=== PATIENT | female | born 1990 | race African-American/Black ===

== ENCOUNTER 2021-01-03 03:39 | Inpatient (IN) | payer MEDICAID ==
[~2021-01-03] VITALS: Ht 162.6 cm; Wt 63.1 kg
[~2021-01-03 03:39] MED LIST: NEOM10SO7 OT
[2021-01-03] MEDS ORDERED: normal saline 1000ml 1,000 ML IV ONE (04:40)
[2021-01-03] MEDS ORDERED: ondansetron/PF 4mg/2ml inj IV ONE (04:40)
[2021-01-03] MEDS ORDERED: morphine 4 MG/ML inj SYRINge IV ONE (04:40)
[2021-01-03 05:01] LABS: BASOPHILS % (AUTO) 0.4 % (0-1); EOSINOPHILS # (AUTO) 0.1 X10'3 (0-0.9); EOSINOPHILS % (AUTO) 1.6 % (0-6); HEMOGLOBIN 12.3 g/dl (12.0-16.0); LYMPHOCYTES # (AUTO) 0.8 X10'3 (1.1-4.8); LYMPHOCYTES % (AUTO) 21.8 % (21-51); MEAN CORPUSCULAR HEMOGLOBIN 33.3 PG (27.0-31.0); MEAN CORPUSCULAR HGB CONC 33.3 g/dL (33.0-36.5); MEAN PLATELET VOLUME 8.3 FL (7.4-10.4); MONOCYTES # (AUTO) 0.3 X10'3 (0-0.9); MONOCYTES % (AUTO) 8.2 % (2-12); NEUTROPHILS # (AUTO) 2.6 X10'3 (1.8-7.7); PLATELET COUNT 195 X10'3 (140-440); RED CELL DISTRIBUTION WIDTH 12.9 % (11.5-14.5); WHITE BLOOD COUNT 3.8 X10'3 (4.5-11.0)
--- NOTE | 2021-01-03 05:08 | NUR ---
US IN WITH PT
--- NOTE | 2021-01-03 05:10 | NUR ---
PT STATES ABD PAIN 10/10 OVER ENTIRE ABDOMEN AND PT IS VOMITING
[2021-01-03 05:14] LABS: ALANINE AMINOTRANSFERASE 29 U/L (12-78); ALBUMIN 3.8 G/DL (3.4-5.0); ALBUMIN/GLOBULIN RATIO 1.1 (1.1-1.5); ALKALINE PHOSPHATASE 64 IU/L (46-116); ANION GAP 13 (8-16); ASPARTATE AMINO TRANSFERASE 16 U/L (10-37); BILIRUBIN,TOTAL 0.2 MG/DL (0.1-1.0); BLOOD UREA NITROGEN 13 MG/DL (7-18); BUN/CREATININE RATIO 12.4 (6.6-38.0); CALCIUM 8.9 MG/DL (8.5-10.1); CHLORIDE 104 MMOL/L (99-107); CREATININE 1.05 MG/DL (0.40-0.90); GLUCOSE 150 MG/DL (70-104); LIPASE 54 U/L (73-393); POTASSIUM 3.3 MMOL/L (3.5-5.1); SODIUM 141 MMOL/L (135-145); TOTAL PROTEIN 7.4 G/DL (6.4-8.2); eGFR 62 ML/MIN
[2021-01-03] MEDS ORDERED: metroNIDAZOLE-Flagyl 500mg/NS 100 ML IV STA (05:23)
[2021-01-03] MEDS ORDERED: CefTRIAXone/D5W-Rocephin 1gm 50 ML IV ONE (05:25)
[2021-01-03] MEDS ORDERED: acetaminophen 325mg tablet PO PRN ×2 (06:00)
[2021-01-03] MEDS ORDERED: potassium Cl 20 mEq SR tablet PO PRN ×2 (06:00)
[2021-01-03] MEDS ORDERED: HYDROcodone/acetaminophen 5mg/325mg tablet PO PRN (06:00)
[2021-01-03] MEDS ORDERED: potassium Cl 40MEQ/1/2NS 520ml 520 ML IV PRN ×2 (06:00)
[2021-01-03] MEDS ORDERED: morphine 2 MG/ML inj. syringe IV PRN (06:00)
[2021-01-03] MEDS ORDERED: magnesium 4gm in 100ml NS 100 ML IV PRN (06:00)
[2021-01-03] MEDS ORDERED: HYDROcodone/acetaminophen 10/325mg tab PO PRN (06:00)
[2021-01-03] MEDS ORDERED: mag hydrox/Alum hydrox/simeth 30ml oral suspension PO PRN (06:00)
[2021-01-03] MEDS ORDERED: magnesium Cl slow-release 64mg tablet PO PRN (06:00)
[2021-01-03] MEDS ORDERED: magnesium 2GM in 50ml NS 50 ML IV PRN (06:00)
[2021-01-03] MEDS ORDERED: ondansetron/PF 4mg/2ml inj IV PRN (06:00)
[2021-01-03] MEDS ORDERED: magnesium hydroxide 30ml (MOM) UD suspension PO PRN (06:00)
[2021-01-03] MEDS: morphine 2 MG/ML inj. syringe IV PRN ×2 (06:15→16:54)
[2021-01-03] MEDS ORDERED: pantoprazole 40 MG vial IV ONE (06:15)
[2021-01-03] MEDS: normal saline 1000ml 1,000 ML IV SCH ×2 (06:15→16:54)
[2021-01-03 06:39] LABS: CLARITY,URINE CLOUDY (Clear); COLOR,URINE STRAW (Yellow); GLUCOSE, URINE NEGATIVE (Neg); KETONES,URINE TRACE mg/dl (Neg); LEUKOCYTE ESTERASE ,URINE NEGATIVE (Neg); NITRITES, URINE NEGATIVE (Neg); OCCULT BLOOD,URINE NEGATIVE (Neg); PH,URINE 7.5 (4.8-8.0); PROTEIN,URINE NEGATIVE (Neg); UROBILINOGEN,URINE 0.2 E.U/dL (0.2-1.0)
[2021-01-03 06:44] LABS: URINE HCG NEGATIVE (NEG)
[2021-01-03 07:02] LABS: URINE AMPHETAMINE SCREEN NEGATIVE (Neg); URINE BARBITUATE SCREEN NEGATIVE (Neg); URINE BENZODIAZEPINES SCREEN NEGATIVE (Neg); URINE CANNABINOID SCREEN POSITIVE (Neg); URINE COCAINE SCREEN POSITIVE (Neg); URINE METHADONE SCREEN NEGATIVE (Neg); URINE OPIATE SCREEN POSITIVE (Neg); URINE PHENCYCLIDINE SCREEN NEGATIVE (Neg)
[2021-01-03 07:03] LABS: UA COLLECTION TYPE CLN CATCH MIDSTREAM
[2021-01-03 07:04] LABS: SQUAMOUS EPITHELIAL CELL,UR FEW /LPF (FEW)
[2021-01-03 07:05] LABS: RBC,URINE 0-2 /HPF (0-2); WBC,URINE 0-4 /HPF (0-4)
[2021-01-03 07:06] LABS: BACTERIA,URINE FEW /HPF (Neg)
[2021-01-03 08:00] VITALS: BP 147/104
[2021-01-03] MEDS: heparin, porcine 5000 units/ml vial SQ SCH ×2 (08:00→20:00)
[2021-01-03] MEDS: K and/or MAG REPLACEMENT MC SCH ×2 (08:03→20:00)
[2021-01-03] MEDS: piperacillin/tazo 3.375gm/50ml 50 ML IV SCH ×2 (08:23→16:27)
[2021-01-03 11:00] VITALS: BP 154/97
[2021-01-03] MEDS ORDERED: NO HOME MEDS (16:48)
--- NOTE | 2021-01-03 18:14 | NUR ---
Problems reprioritized. Patient report given, questions answered & plan of care reviewed with Tori BANSAL.
--- NOTE | 2021-01-03 18:28 | NUR ---
Patient in room [facility]. I have received report from ROLF Rae and had the opportunity to ask questions and assume patient care.
--- NOTE | 2021-01-03 18:32 | NUR ---
Patient in room [facility]. I have received report from ROLF Rae and had the opportunity to ask questions and assume patient care.
[2021-01-03 19:00] VITALS: BP 140/81
[2021-01-03] MEDS ORDERED: temazepam 15mg capsule PO PRN (21:00)
[2021-01-03 23:26] VITALS: BP 120/77
[2021-01-04] MEDS: piperacillin/tazo 3.375gm/50ml 50 ML IV SCH ×3 (00:11→16:19)
[2021-01-04] MEDS: normal saline 1000ml 1,000 ML IV SCH ×2 (02:35→12:05)
[2021-01-04 05:38] VITALS: BP 146/76
--- NOTE | 2021-01-04 06:02 | NUR ---
Problems reprioritized. Patient report given, questions answered & plan of care reviewed with ROLF Rae.
[2021-01-04 06:28] LABS: BASOPHILS % (AUTO) 0.3 % (0-1); EOSINOPHILS % (AUTO) 1.1 % (0-6); HEMATOCRIT 36.4 % (35.0-45.0); LYMPHOCYTES # (AUTO) 1.1 X10'3 (1.1-4.8); LYMPHOCYTES % (AUTO) 29.3 % (21-51); MEAN CORPUSCULAR HEMOGLOBIN 32.7 PG (27.0-31.0); MEAN CORPUSCULAR HGB CONC 32.9 g/dL (33.0-36.5); MEAN CORPUSCULAR VOLUME 99.6 FL (78-98); MEAN PLATELET VOLUME 8.7 FL (7.4-10.4); MONOCYTES # (AUTO) 0.3 X10'3 (0-0.9); MONOCYTES % (AUTO) 7.5 % (2-12); NEUTROPHILS # (AUTO) 2.3 X10'3 (1.8-7.7); NEUTROPHILS % (AUTO) 61.8 % (42-75); PLATELET COUNT 190 X10'3 (140-440); RED BLOOD COUNT 3.66 X10'6 (4.20-5.60); RED CELL DISTRIBUTION WIDTH 12.8 % (11.5-14.5); WHITE BLOOD COUNT 3.8 X10'3 (4.5-11.0)
--- NOTE | 2021-01-04 06:28 | NUR ---
Problems reprioritized. Patient report given, questions answered & plan of care reviewed with ROLF Rae.
[2021-01-04 06:31] LABS: PARTIAL THROMBOPLASTIN TIME 27 SECONDS (22-32)
[2021-01-04 06:41] LABS: ALANINE AMINOTRANSFERASE 27 U/L (12-78); ALBUMIN 3.2 G/DL (3.4-5.0); ALBUMIN/GLOBULIN RATIO 0.9 (1.1-1.5); ALKALINE PHOSPHATASE 55 IU/L (46-116); ANION GAP 11 (8-16); ASPARTATE AMINO TRANSFERASE 16 U/L (10-37); BILIRUBIN,TOTAL 0.5 MG/DL (0.1-1.0); BLOOD UREA NITROGEN 4 MG/DL (7-18); CALCIUM 8.2 MG/DL (8.5-10.1); CHLORIDE 105 MMOL/L (99-107); GLUCOSE 94 MG/DL (70-104); MAGNESIUM 2.1 MG/DL (1.5-2.4); POTASSIUM 3.5 MMOL/L (3.5-5.1); SODIUM 139 MMOL/L (135-145); TOTAL CARBON DIOXIDE 23.2 MMOL/L (24-32); TOTAL PROTEIN 6.9 G/DL (6.4-8.2); eGFR > 90 ML/MIN
[2021-01-04 08:00] VITALS: BP 124/69
[2021-01-04] MEDS: heparin, porcine 5000 units/ml vial SQ SCH (08:00)
[2021-01-04] MEDS: K and/or MAG REPLACEMENT MC SCH (08:00)
--- NOTE | 2021-01-04 09:52 | NUR ---
Malnutrition consult: Pt reports 2-13 lb wt loss with decreased appetite per malnutrition risk screen with RN. Patient's current documented wt is stable with documented wt hx from 2017 in EMR. Pt currently NPO, pending surgical intervention for acute cholecystitis with cholelithiasis. Pt with no documented decrease in muscle strength or edema. Pt appears well developed well nourished per ED report. Pt likely with some changes in appetite and PO intake secondary to admitting dx however currently lacks a minimum of two criteria for malnutrition. Will continue to follow. Addendum: 01/04/21 at [address] Amended: Links added.
[2021-01-04] MEDS ORDERED: ceFOXitin 2GM-NS 100mL ADDvant 100 ML IV ONE (11:30)
[2021-01-04 12:00] VITALS: BP 144/75
--- NOTE | 2021-01-04 17:54 | NUR ---
Patient left AMA. She was upset because her surgery time did not happen in a time frame that she was happy with. Patient was originally scheduled for surgery tomorrow 01/05/[address] Patricia. Patient states she will return tomorrow for her surgery. I did explain to her that just because she is schedule for surgery that it does not mean that it will occur at that exact minute. She was angry and left. IV was removed and canula was intact.
== END 2021-01-04 17:51 | disposition left against medical advice (07) ==
LOC: ER 03:39 → UNDOADMIN 05:57 → ED HOLD 05:57 → SUR 3N 07:15 → ED HOLD 07:15
PROVIDERS: ADMIT Internal Medicine; ATTEND Internal Medicine
DX: K80.00 Calculus of gallbladder with acute cholecystitis without obstruction (principal); F12.90 Cannabis use, unspecified, uncomplicated; Z20.822 Contact with and (suspected) exposure to COVID-19; F17.210 Nicotine dependence, cigarettes, uncomplicated; Z53.29 Procedure and treatment not carried out because of patient's decision for other reasons; Z88.6 Allergy status to analgesic agent
CPT/HCPCS: 36415; 76700; 80053; 80305; 81001; 81025; 82948; 83605; 83690; 83735; 85025; 85610; 85730; 87040; 87081; 87426; 96361; 96374; 96375; 99281; 99285; C9113; G0378; J0696; J2270; J2405; J2543; J3480; J3490; J7030

== ENCOUNTER → 2021-01-05 | Day surgery (SDC) | payer MEDICAID ==
[~2021-01-05] VITALS: Ht 162.6 cm; Wt 63.0 kg
[2021-01-05] VITALS (10 sets, daily range): BP systolic 122–165; BP diastolic 65–103
[~2021-01-05] MED LIST changes: +BUPIVAcaine/PF 2.5 mg/ml (0.25%) 30ml vial ONE; +CEFOXITIN 2 GM IV ONE; +INDOCYANINE GREEN 25 MG/10 ML VIAL IV ONE; -NEOM10SO7 OT; +NO HOME MEDS; +[UNRECOGNIZED DRUG - OTHER] IV ONE; +ceFOXitin 2GM-NS 100mL ADDvant 100 ML IV ONE; +ceFOXitin 2GM-NS 50mL ADDVANT. 50 ML IV ONE; +dexamethasone sod phosphate 4mg/ml inj. ONE; +famotidine 20mg tablet PO ONE; +fentaNYL /PF 50mcg/ml 5ml ampule ONE; +fentaNYL/PF 50MCG/1 ML 2ML syringe ONE; +glycopyrrolate 0.2mg/ml inj ONE; +meperidine/PF 25mg/ml syringe IV PRN; +midazolam 1 mg/ML 2ml injection ONE; +morphine 2 MG/ML inj. syringe IV PRN; +morphine 4 MG/ML inj SYRINge IV PRN; +neostigmine methylsulfate 1 MG/ML 10ml vial ONE; +ondansetron/PF 4mg/2ml inj IV PRN; +ondansetron/PF 4mg/2ml inj ONE; +proCHLORperazine 10 MG/2 ml inj IV PRN; +propofol inj 20 ML IV ONE; +ringers solution, lacted 1,000 ML IV SCH; +rocuronium 10mg/ml inj IV ONE; +sevoflurane 250ml liquid IH ONE
--- NOTE | 2021-01-05 16:28 | NUR ---
Received from OR via , accompanied by Anesthesiologist DR RUSHING and report given by Anesthesiolgist. PT PRESENT WITH IV RIGHT WRIST. VSS. DRESSING DRY AND INTACT. Addendum: 01/05/21 at 1639 by Corrie Chino RN, RN Amended: Links added.
[2021-01-05] MEDS: meperidine/PF 25mg/ml syringe IV PRN ×2 (16:34→16:48)
== END | disposition home or self-care (01) ==
LOC: PRE-OP 10:01
PROVIDERS: ATTEND Surgery
DX: K80.20 Calculus of gallbladder without cholecystitis without obstruction (principal); F12.90 Cannabis use, unspecified, uncomplicated; Z79.899 Other long term (current) drug therapy
CPT/HCPCS: 47562; 82948; J0694; J1100; J2175; J2250; J2405; J2704; J2710; J3010; J3490; J7120; A4215; A4618; A7000

== ENCOUNTER 2021-01-13 16:35 | Inpatient (IN) | payer MEDICAID ==
[~2021-01-13] VITALS: Ht 163.8 cm; Wt 59.0 kg
[~2021-01-13 16:35] MED LIST changes: -BUPIVAcaine/PF 2.5 mg/ml (0.25%) 30ml vial ONE; -CEFOXITIN 2 GM IV ONE; -INDOCYANINE GREEN 25 MG/10 ML VIAL IV ONE; -[UNRECOGNIZED DRUG - OTHER] IV ONE; -ceFOXitin 2GM-NS 100mL ADDvant 100 ML IV ONE; -ceFOXitin 2GM-NS 50mL ADDVANT. 50 ML IV ONE; -dexamethasone sod phosphate 4mg/ml inj. ONE; -famotidine 20mg tablet PO ONE; -fentaNYL /PF 50mcg/ml 5ml ampule ONE; -fentaNYL/PF 50MCG/1 ML 2ML syringe ONE; -glycopyrrolate 0.2mg/ml inj ONE; -meperidine/PF 25mg/ml syringe IV PRN; -midazolam 1 mg/ML 2ml injection ONE; -morphine 2 MG/ML inj. syringe IV PRN; -morphine 4 MG/ML inj SYRINge IV PRN; -neostigmine methylsulfate 1 MG/ML 10ml vial ONE; -ondansetron/PF 4mg/2ml inj IV PRN; -ondansetron/PF 4mg/2ml inj ONE; -proCHLORperazine 10 MG/2 ml inj IV PRN; -propofol inj 20 ML IV ONE; -ringers solution, lacted 1,000 ML IV SCH; -rocuronium 10mg/ml inj IV ONE; -sevoflurane 250ml liquid IH ONE
[2021-01-13] MEDS ORDERED: normal saline 1000ML IV soln IVB ONE (17:15)
[2021-01-13] MEDS ORDERED: ondansetron/PF 4mg/2ml inj IV ONE (17:15)
[2021-01-13] MEDS ORDERED: morphine 4 MG/ML inj SYRINge IV PRN (17:15)
[2021-01-13 17:30] LABS: BASOPHILS % (AUTO) 0.5 % (0-1); EOSINOPHILS # (AUTO) 0.1 X10'3 (0-0.9); EOSINOPHILS % (AUTO) 1.8 % (0-6); HEMOGLOBIN 14.2 g/dl (12.0-16.0); LYMPHOCYTES # (AUTO) 1.1 X10'3 (1.1-4.8); LYMPHOCYTES % (AUTO) 22.3 % (21-51); MEAN CORPUSCULAR HEMOGLOBIN 32.8 PG (27.0-31.0); MEAN CORPUSCULAR HGB CONC 32.9 g/dL (33.0-36.5); MEAN CORPUSCULAR VOLUME 99.7 FL (78-98); MEAN PLATELET VOLUME 8.2 FL (7.4-10.4); MONOCYTES # (AUTO) 0.3 X10'3 (0-0.9); MONOCYTES % (AUTO) 5.9 % (2-12); NEUTROPHILS # (AUTO) 3.4 X10'3 (1.8-7.7); NEUTROPHILS % (AUTO) 69.5 % (42-75); PLATELET COUNT 240 X10'3 (140-440); RED BLOOD COUNT 4.32 X10'6 (4.20-5.60); RED CELL DISTRIBUTION WIDTH 12.6 % (11.5-14.5); WHITE BLOOD COUNT 4.9 X10'3 (4.5-11.0)
[2021-01-13 17:47] LABS: ALKALINE PHOSPHATASE 299 IU/L (46-116); LIPASE 64 U/L (73-393)
[2021-01-13 17:48] LABS: ANION GAP 13 (8-16); ASPARTATE AMINO TRANSFERASE 989 U/L (10-37); BILIRUBIN,TOTAL 6.3 MG/DL (0.1-1.0); BLOOD UREA NITROGEN 12 MG/DL (7-18); BUN/CREATININE RATIO 11.8 (6.6-38.0); CALCIUM 9.9 MG/DL (8.5-10.1); CHLORIDE 100 MMOL/L (99-107); CREATININE 1.02 MG/DL (0.40-0.90); GLUCOSE 104 MG/DL (70-104); SODIUM 136 MMOL/L (135-145); TOTAL CARBON DIOXIDE 22.7 MMOL/L (24-32); eGFR 77 ML/MIN
[2021-01-13 17:51] LABS: ALANINE AMINOTRANSFERASE 2115 U/L (12-78); POTASSIUM 3.3 MMOL/L (3.5-5.1)
[2021-01-13] MEDS ORDERED: iohexol 300mg/ml 100ml inj. ONE (17:55)
[2021-01-13 18:04] LABS: ALBUMIN/GLOBULIN RATIO 0.9 (1.1-1.5); TOTAL PROTEIN 8.6 G/DL (6.4-8.2)
[2021-01-13 19:54] LABS: CLARITY,URINE CLEAR (Clear); GLUCOSE, URINE NEGATIVE (Neg); KETONES,URINE 15 mg/dl (Neg); LEUKOCYTE ESTERASE ,URINE NEGATIVE (Neg); NITRITES, URINE NEGATIVE (Neg); OCCULT BLOOD,URINE NEGATIVE (Neg); PH,URINE 7.5 (4.8-8.0); PROTEIN,URINE NEGATIVE (Neg); URINE HCG NEGATIVE (NEG)
--- NOTE | 2021-01-13 20:03 | NUR ---
pt to be admitted, dr. woodard at bedside now. Pt updated that we still need a urine on her.
[2021-01-13 20:06] LABS: UA COLLECTION TYPE CLN CATCH MIDSTREAM
[2021-01-13 20:07] LABS: COLOR,URINE DARK YELLOW (Yellow)
[2021-01-13] MEDS ORDERED: piperacillin/tazo 3.375gm/50ml 50 ML IV ONE (20:15)
--- NOTE | 2021-01-13 21:27 | NUR ---
GI ROLF HERMAN, CALLING TO UPDATE ME THAT PT IS PLANNED TO GO TO GI LAB AT [address] MCKINNEY FOR ERCP. PT UPDATED.
[2021-01-13] MEDS ORDERED: HYDR-3973 PO (21:34)
[2021-01-13] MEDS ORDERED: magnesium hydroxide 30ml (MOM) UD suspension PO PRN (21:55)
[2021-01-13] MEDS ORDERED: diphenhydrAMINE 25mg capsule PO PRN (21:55)
[2021-01-13] MEDS ORDERED: mag hydrox/Alum hydrox/simeth 30ml oral suspension PO PRN (21:55)
[2021-01-13] MEDS ORDERED: HYDROmorphone inj. 0.5 MG/0.5 ML DISP.SYRIN IV PRN (21:55)
[2021-01-13] MEDS ORDERED: ondansetron 4mg rapidly disintigrating tab PO PRN (21:55)
[2021-01-13] MEDS ORDERED: diphenhydrAMINE 50 mg/ml inj IV PRN (21:55)
[2021-01-13] MEDS ORDERED: bisacodyl 10mg suppository rectal RC PRN (21:55)
[2021-01-13] MEDS ORDERED: ondansetron/PF 4mg/2ml inj IV PRN (21:55)
[2021-01-13] MEDS ORDERED: acetaminophen 325mg tablet PO PRN ×2 (21:55)
[2021-01-13] MEDS ORDERED: HYDROcodone/acetaminophen 5mg/325mg tablet PO PRN (21:55)
[2021-01-13] MEDS ORDERED: morphine 2 MG/ML inj. syringe IV PRN (21:55)
[2021-01-13] MEDS ORDERED: acetaminophen 650mg rectal suppository RC PRN (21:55)
--- NOTE | 2021-01-13 21:57 | NUR ---
pt moved from bed 3 to hallway bed 7
--- NOTE | 2021-01-13 22:39 | NUR ---
Patient in room ED [id number]. I have received report from JOSE BANSAL and had the opportunity to ask questions and will assume patient care.
[2021-01-13] MEDS ORDERED: potassium Cl 20 mEq SR tablet PO PRN ×2 (22:45)
[2021-01-13] MEDS ORDERED: magnesium Cl slow-release 64mg tablet PO PRN (22:45)
[2021-01-13] MEDS ORDERED: potassium Cl 40MEQ/1/2NS 520ml 520 ML IV PRN (22:45)
[2021-01-13] MEDS ORDERED: magnesium 4gm in 100ml NS 100 ML IV PRN (22:45)
[2021-01-13] MEDS: dextrose 5%-1/2 normal saline 1,000 ML IV SCH (22:49)
[2021-01-13 22:53] LABS: PARTIAL THROMBOPLASTIN TIME 26 SECONDS (22-32)
[2021-01-13 22:57] LABS: MAGNESIUM 2.1 MG/DL (1.5-2.4)
[2021-01-13 22:58] LABS: PHOSPHORUS 3.2 MG/DL (2.3-4.5)
[2021-01-13 23:43] VITALS: BP 129/79
[2021-01-14] VITALS (11 sets, daily range): BP systolic 120–150; BP diastolic 51–98
[2021-01-14] MEDS: temazepam 15mg capsule PO PRN ×2 (00:30→20:58)
[2021-01-14] MEDS: piperacillin/tazo 3.375gm/50ml 50 ML IV SCH ×3 (04:30→20:57)
--- NOTE | 2021-01-14 06:20 | NUR ---
Patient in room [facility]. I have received report from ROLF Adkins and had the opportunity to ask questions and assume patient care.
--- NOTE | 2021-01-14 06:25 | NUR ---
Problems reprioritized. Patient report given, questions answered & plan of care reviewed with DICK RN.
[2021-01-14] MEDS ORDERED: fentaNYL/PF 50MCG/1 ML 2ML syringe ONE (07:11)
[2021-01-14] MEDS ORDERED: diphenhydrAMINE 50 mg/ml inj ONE (07:11)
[2021-01-14] MEDS ORDERED: glucagon, human recombinant 1mg kit ONE (07:11)
[2021-01-14] MEDS ORDERED: LIDOcaine Viscous 15ml cup ONE (07:11)
[2021-01-14] MEDS ORDERED: iohexol 300 MG/1 ML 50ml polymer ONE (07:11)
[2021-01-14] MEDS ORDERED: MIDAZolam 1 MG/ML 5ML VIAL ONE (07:11)
[2021-01-14 07:27] LABS: BASOPHILS % (AUTO) 0.8 % (0-1); EOSINOPHILS # (AUTO) 0.1 X10'3 (0-0.9); EOSINOPHILS % (AUTO) 3.7 % (0-6); HEMOGLOBIN 12.1 g/dl (12.0-16.0); LYMPHOCYTES # (AUTO) 1.4 X10'3 (1.1-4.8); MEAN CORPUSCULAR HEMOGLOBIN 33.3 PG (27.0-31.0); MEAN CORPUSCULAR HGB CONC 33.6 g/dL (33.0-36.5); MEAN PLATELET VOLUME 8.1 FL (7.4-10.4); MONOCYTES # (AUTO) 0.3 X10'3 (0-0.9); MONOCYTES % (AUTO) 8.3 % (2-12); NEUTROPHILS # (AUTO) 1.9 X10'3 (1.8-7.7); NEUTROPHILS % (AUTO) 50.2 % (42-75); PLATELET COUNT 200 X10'3 (140-440); RED BLOOD COUNT 3.63 X10'6 (4.20-5.60); RED CELL DISTRIBUTION WIDTH 12.6 % (11.5-14.5); WHITE BLOOD COUNT 3.8 X10'3 (4.5-11.0)
[2021-01-14 07:49] LABS: ALKALINE PHOSPHATASE 244 IU/L (46-116); ANION GAP 8 (8-16); ASPARTATE AMINO TRANSFERASE 594 U/L (10-37); BILIRUBIN,TOTAL 5.3 MG/DL (0.1-1.0); BLOOD UREA NITROGEN 7 MG/DL (7-18); BUN/CREATININE RATIO 7.8 (6.6-38.0); CALCIUM 8.4 MG/DL (8.5-10.1); CHLORIDE 103 MMOL/L (99-107); GLUCOSE 98 MG/DL (70-104); POTASSIUM 3.6 MMOL/L (3.5-5.1); SODIUM 135 MMOL/L (135-145); TOTAL CARBON DIOXIDE 24.1 MMOL/L (24-32); eGFR 89 ML/MIN
[2021-01-14 07:53] LABS: ALANINE AMINOTRANSFERASE 1528 U/L (12-78); ALBUMIN/GLOBULIN RATIO 0.8 (1.1-1.5); TOTAL PROTEIN 6.8 G/DL (6.4-8.2)
[2021-01-14] MEDS: dextrose 5%-1/2 normal saline 1,000 ML IV SCH ×2 (07:55→16:22)
[2021-01-14] MEDS: K and/or MAG REPLACEMENT MC SCH ×2 (08:00→20:00)
[2021-01-14] MEDS: docusate sod 100mg capsule PO SCH ×2 (10:22→20:58)
[2021-01-14] MEDS: pantoprazole 40 MG vial IV SCH (10:22)
--- NOTE | 2021-01-14 18:20 | NUR ---
Problems reprioritized. Patient report given, questions answered & plan of care reviewed with ROLF Fontana.
--- NOTE | 2021-01-14 19:33 | NUR ---
Patient in room [facility]. I have received report from Isabel BANSAL and had the opportunity to ask questions and assume patient care.
[2021-01-14] MEDS: morphine 2 MG/ML inj. syringe IV PRN (21:26)
[2021-01-15] MEDS: dextrose 5%-1/2 normal saline 1,000 ML IV SCH (03:43)
[2021-01-15] MEDS: piperacillin/tazo 3.375gm/50ml 50 ML IV SCH (03:44)
[2021-01-15] MEDS: morphine 2 MG/ML inj. syringe IV PRN (04:00)
--- NOTE | 2021-01-15 06:21 | NUR ---
Problems reprioritized. Patient report given, questions answered & plan of care reviewed with Marshal BANSAL.
[2021-01-15 06:26] LABS: BASOPHILS % (AUTO) 0.6 % (0-1); EOSINOPHILS # (AUTO) 0.1 X10'3 (0-0.9); EOSINOPHILS % (AUTO) 2.7 % (0-6); HEMATOCRIT 35.4 % (35.0-45.0); HEMOGLOBIN 11.8 g/dl (12.0-16.0); LYMPHOCYTES # (AUTO) 1.7 X10'3 (1.1-4.8); MEAN CORPUSCULAR HGB CONC 33.3 g/dL (33.0-36.5); MEAN CORPUSCULAR VOLUME 99.2 FL (78-98); MEAN PLATELET VOLUME 8.4 FL (7.4-10.4); MONOCYTES # (AUTO) 0.3 X10'3 (0-0.9); MONOCYTES % (AUTO) 8.1 % (2-12); NEUTROPHILS # (AUTO) 1.9 X10'3 (1.8-7.7); NEUTROPHILS % (AUTO) 46.6 % (42-75); PLATELET COUNT 204 X10'3 (140-440); RED BLOOD COUNT 3.57 X10'6 (4.20-5.60); RED CELL DISTRIBUTION WIDTH 12.6 % (11.5-14.5)
[2021-01-15 06:48] LABS: ALBUMIN 2.9 G/DL (3.4-5.0); ALBUMIN/GLOBULIN RATIO 0.8 (1.1-1.5); ALKALINE PHOSPHATASE 207 IU/L (46-116); ANION GAP 5 (8-16); ASPARTATE AMINO TRANSFERASE 207 U/L (10-37); BILIRUBIN,TOTAL 1.3 MG/DL (0.1-1.0); BLOOD UREA NITROGEN 5 MG/DL (7-18); BUN/CREATININE RATIO 5.7 (6.6-38.0); CALCIUM 8.3 MG/DL (8.5-10.1); CHLORIDE 106 MMOL/L (99-107); CREATININE 0.88 MG/DL (0.40-0.90); GLUCOSE 112 MG/DL (70-104); LIPASE 85 U/L (73-393); POTASSIUM 3.7 MMOL/L (3.5-5.1); SODIUM 138 MMOL/L (135-145); TOTAL CARBON DIOXIDE 27.1 MMOL/L (24-32); TOTAL PROTEIN 6.5 G/DL (6.4-8.2); eGFR > 90 ML/MIN
[2021-01-15 06:49] LABS: ALANINE AMINOTRANSFERASE 1037 U/L (12-78)
[2021-01-15 07:22] VITALS: BP 116/71
[2021-01-15] MEDS: docusate sod 100mg capsule PO SCH (07:58)
[2021-01-15] MEDS: K and/or MAG REPLACEMENT MC SCH (08:00)
[2021-01-15] MEDS: pantoprazole 40 MG vial IV SCH (08:02)
--- NOTE | 2021-01-15 08:56 | NUR ---
Dr Harshad leo MD stated pt may be discharged by the hospitalist. Pt verbalized understanding and denied questions.
== END 2021-01-15 10:55 | disposition home or self-care (01) ==
LOC: ER 16:36 → ED HOLD 21:51 → SUR 3N 23:00
PROVIDERS: ADMIT Family Medicine; ATTEND Family Medicine
PROC: BW211ZZ Computerized Tomography (CT Scan) of Abdomen and Pelvis using Low Osmolar Contrast (ICD-10-PCS; 2021-01-13)
PROC: 0FC98ZZ Extirpation of Matter from Common Bile Duct, Via Natural or Artificial Opening Endoscopic (ICD-10-PCS; principal; 2021-01-14)
DX: K80.30 Calculus of bile duct with cholangitis, unspecified, without obstruction (principal); K56.7 Ileus, unspecified; K76.0 Fatty (change of) liver, not elsewhere classified; E86.0 Dehydration; E87.6 Hypokalemia; F12.90 Cannabis use, unspecified, uncomplicated; I10 Essential (primary) hypertension; Z90.49 Acquired absence of other specified parts of digestive tract; Z88.8 Allergy status to other drugs, medicaments and biological substances; Z79.899 Other long term (current) drug therapy
CPT/HCPCS: 36415; 43262; 43264; 74177; 80053; 81003; 81025; 83690; 83735; 84100; 85025; 85610; 85730; 87081; 96361; 96365; 96375; 99152; 99153; 99285; A4620; C1769; C9113; G0378; J1200; J1610; J2250; J2270; J2405; J2543; J3010; J3480; J7030; J7040; Q9967

== ENCOUNTER 2021-02-07 08:40 | Emergency (ER) | payer MEDICAID ==
[~2021-02-07] VITALS: Ht 162.6 cm; Wt 63.0 kg
[~2021-02-07 08:40] MED LIST changes: +HYDR-3973 PO; -NO HOME MEDS
[2021-02-07 09:29] VITALS: BP 120/77
[2021-02-07] MEDS ORDERED: iohexol 300mg/ml 100ml inj. ONE (11:56)
[2021-02-07 12:28] LABS: URINE HCG NEGATIVE (NEG)
[2021-02-07 12:29] LABS: BASOPHILS % (AUTO) 0.4 % (0-1); EOSINOPHILS # (AUTO) 0.1 X10'3 (0-0.9); HEMATOCRIT 36.9 % (35.0-45.0); HEMOGLOBIN 12.1 g/dl (12.0-16.0); LYMPHOCYTES % (AUTO) 40.2 % (21-51); MEAN CORPUSCULAR HEMOGLOBIN 33.1 PG (27.0-31.0); MEAN CORPUSCULAR HGB CONC 32.8 g/dL (33.0-36.5); MEAN PLATELET VOLUME 8.6 FL (7.4-10.4); MONOCYTES # (AUTO) 0.3 X10'3 (0-0.9); MONOCYTES % (AUTO) 7.1 % (2-12); NEUTROPHILS # (AUTO) 2.4 X10'3 (1.8-7.7); NEUTROPHILS % (AUTO) 49.3 % (42-75); PLATELET COUNT 212 X10'3 (140-440); RED BLOOD COUNT 3.66 X10'6 (4.20-5.60); RED CELL DISTRIBUTION WIDTH 13.3 % (11.5-14.5); WHITE BLOOD COUNT 4.9 X10'3 (4.5-11.0)
[2021-02-07 12:38] LABS: ALANINE AMINOTRANSFERASE 34 U/L (12-78); ALBUMIN 3.7 G/DL (3.4-5.0); ALBUMIN/GLOBULIN RATIO 0.9 (1.1-1.5); ALKALINE PHOSPHATASE 77 IU/L (46-116); ANION GAP 7 (8-16); ASPARTATE AMINO TRANSFERASE 13 U/L (10-37); BILIRUBIN,TOTAL 0.4 MG/DL (0.1-1.0); BLOOD UREA NITROGEN 12 MG/DL (7-18); CALCIUM 8.7 MG/DL (8.5-10.1); CHLORIDE 108 MMOL/L (99-107); CREATININE 0.86 MG/DL (0.40-0.90); GLUCOSE 82 MG/DL (70-104); SODIUM 143 MMOL/L (135-145); TOTAL CARBON DIOXIDE 28.4 MMOL/L (24-32); TOTAL PROTEIN 7.6 G/DL (6.4-8.2); eGFR > 90 ML/MIN
[2021-02-07 12:54] LABS: CLARITY,URINE SLIGHTLY CLOUDY (Clear); COLOR,URINE YELLOW (Yellow); GLUCOSE, URINE NEGATIVE (Neg); KETONES,URINE NEGATIVE (Neg); LEUKOCYTE ESTERASE ,URINE NEGATIVE (Neg); NITRITES, URINE NEGATIVE (Neg); OCCULT BLOOD,URINE TRACE-INTACT (Neg); PH,URINE 6.5 (4.8-8.0); PROTEIN,URINE NEGATIVE (Neg); UROBILINOGEN,URINE 0.2 E.U/dL (0.2-1.0)
[2021-02-07 13:01] LABS: UA COLLECTION TYPE CLN CATCH MIDSTREAM
[2021-02-07 13:02] LABS: MUCUS STRANDS MANY /LPF (Neg); SQUAMOUS EPITHELIAL CELL,UR MANY /LPF (FEW)
[2021-02-07 13:03] LABS: BACTERIA,URINE FEW /HPF (Neg); RBC,URINE 0-2 /HPF (0-2)
--- NOTE | 2021-02-07 13:40 | NUR ---
Patient was in the lobby and instructed not to leave. Patient promised to not leave or will have her IV taken out. Patient also notified if she did leave we will call the police on her. Dr. Babcock agreed.
[2021-02-07] MEDS ORDERED: CEPH-585 PO (14:09)
== END 2021-02-07 14:27 | disposition home or self-care (01) ==
LOC: ER 08:40
DX: L03.311 Cellulitis of abdominal wall (principal); F12.90 Cannabis use, unspecified, uncomplicated; Z90.49 Acquired absence of other specified parts of digestive tract; Z88.8 Allergy status to other drugs, medicaments and biological substances; Z79.899 Other long term (current) drug therapy
CPT/HCPCS: 36415; 74177; 80053; 81001; 81025; 85025; 99285; Q9967

== ENCOUNTER 2021-05-24 08:03 | Emergency (ER) | payer MEDICAID ==
[~2021-05-24] VITALS: Ht 162.6 cm; Wt 63.1 kg
[~2021-05-24 08:03] MED LIST changes: +CEPH-585 PO
[2021-05-24 08:24] VITALS: BP 125/74
== END 2021-05-24 08:50 | disposition home or self-care (01) ==
LOC: ER 08:03
DX: S90.32XA Contusion of left foot, initial encounter (principal); M79.672 Pain in left foot; F12.90 Cannabis use, unspecified, uncomplicated; Z90.49 Acquired absence of other specified parts of digestive tract; Z88.6 Allergy status to analgesic agent; Z79.2 Long term (current) use of antibiotics; X58.XXXA Exposure to other specified factors, initial encounter; Y93.89 Activity, other specified; Y92.89 Other specified places as the place of occurrence of the external cause; Y99.8 Other external cause status
CPT/HCPCS: 99281

== ENCOUNTER 2021-08-05 07:32 | Emergency (ER) | payer MEDICAID ==
[~2021-08-05] VITALS: Ht 162.6 cm; Wt 54.5 kg
[2021-08-05 08:07] VITALS: BP 137/99
== END 2021-08-05 12:09 | disposition left against medical advice (07) ==
LOC: ER 07:34
DX: R05.9 Cough, unspecified (principal); R11.0 Nausea; R53.83 Other fatigue; F12.90 Cannabis use, unspecified, uncomplicated; Z90.49 Acquired absence of other specified parts of digestive tract; Z88.6 Allergy status to analgesic agent; Z79.2 Long term (current) use of antibiotics
CPT/HCPCS: 99281

== ENCOUNTER 2021-08-10 15:12 | Emergency (ER) | payer MEDICAID ==
[~2021-08-10] VITALS: Ht 162.6 cm; Wt 63.6 kg
[2021-08-10 15:39] VITALS: BP 121/73
[2021-08-10 16:12] LABS: URINE HCG POSITIVE (NEG)
[2021-08-10 16:14] LABS: CLARITY,URINE SLIGHTLY CLOUDY (Clear); COLOR,URINE YELLOW (Yellow); GLUCOSE, URINE NEGATIVE (Neg); KETONES,URINE TRACE mg/dl (Neg); LEUKOCYTE ESTERASE ,URINE NEGATIVE (Neg); NITRITES, URINE NEGATIVE (Neg); OCCULT BLOOD,URINE NEGATIVE (Neg); PROTEIN,URINE NEGATIVE (Neg); UROBILINOGEN,URINE 0.2 E.U/dL (0.2-1.0)
[2021-08-10 16:15] LABS: UA COLLECTION TYPE STRAIGHT CATH
[2021-08-10 16:21] LABS: HEMOGLOBIN 11.6 g/dl (12.0-16.0); MONOCYTES # (AUTO) 0.2 X10'3 (0-0.9)
[2021-08-10 16:23] LABS: BASOPHILS % (AUTO) 0.3 % (0-1); EOSINOPHILS # (AUTO) 0.1 X10'3 (0-0.9); EOSINOPHILS % (AUTO) 2.5 % (0-6); HEMATOCRIT 34.6 % (35.0-45.0); LYMPHOCYTES % (AUTO) 52.1 % (21-51); MEAN CORPUSCULAR HEMOGLOBIN 33.2 PG (27.0-31.0); MEAN CORPUSCULAR HGB CONC 33.6 g/dL (33.0-36.5); MEAN CORPUSCULAR VOLUME 98.9 FL (78-98); MEAN PLATELET VOLUME 8.5 FL (7.4-10.4); MONOCYTES % (AUTO) 3.9 % (2-12); NEUTROPHILS # (AUTO) 2.4 X10'3 (1.8-7.7); NEUTROPHILS % (AUTO) 41.2 % (42-75); PLATELET COUNT 230 X10'3 (140-440); RED BLOOD COUNT 3.49 X10'6 (4.20-5.60); RED CELL DISTRIBUTION WIDTH 13.4 % (11.5-14.5); WHITE BLOOD COUNT 5.7 X10'3 (4.5-11.0)
[2021-08-10 16:27] LABS: HYALINE CASTS 0-3 /LPF (NEGATIVE); MUCUS STRANDS MANY /LPF (Neg); SQUAMOUS EPITHELIAL CELL,UR MANY /LPF (FEW); TRANSITIONAL EPI CELLS,URINE FEW /HPF; WBC,URINE 0-4 /HPF (0-4)
[2021-08-10 16:28] LABS: BACTERIA,URINE 1+ /HPF (Neg)
[2021-08-10 16:28] LABS: ALANINE AMINOTRANSFERASE 18 U/L (12-78); ALBUMIN 3.9 G/DL (3.4-5.0); ALBUMIN/GLOBULIN RATIO 1.1 (1.1-1.5); ALKALINE PHOSPHATASE 55 IU/L (46-116); ANION GAP 10 (8-16); ASPARTATE AMINO TRANSFERASE 17 U/L (10-37); BILIRUBIN,TOTAL 0.1 MG/DL (0.1-1.0); BLOOD UREA NITROGEN 13 MG/DL (7-18); BUN/CREATININE RATIO 16.5 (6.6-38.0); CALCIUM 8.7 MG/DL (8.5-10.1); CHLORIDE 104 MMOL/L (99-107); CREATININE 0.79 MG/DL (0.40-0.90); GLUCOSE 71 MG/DL (70-104); POTASSIUM 3.2 MMOL/L (3.5-5.1); SODIUM 140 MMOL/L (135-145); TOTAL CARBON DIOXIDE 26.2 MMOL/L (24-32); TOTAL PROTEIN 7.6 G/DL (6.4-8.2); eGFR > 90 ML/MIN
[2021-08-10 16:49] LABS: LIPASE 118 U/L (73-393); MAGNESIUM 2.2 MG/DL (1.5-2.4)
[2021-08-10 16:52] LABS: BETA HCG,QUANTITATIVE 6785 mIU/ml
[2021-08-10 17:30] LABS: TOTAL CELLS COUNTED 100
[2021-08-10 17:32] LABS: ANISOCYTOSIS FEW; PLATELET ESTIMATE NORMAL
[2021-08-10 17:33] LABS: SMUDGE CELLS FEW; TEAR DROP CELLS FEW
== END 2021-08-10 19:37 | disposition home or self-care (01) ==
LOC: ER 15:12
DX: O26.891 Other specified pregnancy related conditions, first trimester (principal); R10.13 Epigastric pain; O99.321 Drug use complicating pregnancy, first trimester; F12.90 Cannabis use, unspecified, uncomplicated; Z3A.01 Less than 8 weeks gestation of pregnancy; Z87.19 Personal history of other diseases of the digestive system; Z90.49 Acquired absence of other specified parts of digestive tract; Z88.0 Allergy status to penicillin; Z88.8 Allergy status to other drugs, medicaments and biological substances; Z79.2 Long term (current) use of antibiotics
CPT/HCPCS: 36415; 80053; 81001; 81025; 83690; 83735; 84702; 85007; 85025; 99283